=== PATIENT | male | born 1965 | race Caucasian/White ===

== ENCOUNTER 2020-03-30 16:29 | Emergency (ER) | payer BC ==
[~2020-03-30] VITALS: Ht 193 cm; Wt 120.5 kg
[2020-03-30 16:50] VITALS: BP 168/81; TEMP 98.7
[2020-03-30] MEDS ORDERED: INSULIN SYRING1 EA12 SQ (17:15)
[2020-03-30] MEDS ORDERED: BYSTOLIC10 MG PO (17:15)
[2020-03-30] MEDS ORDERED: AMOXICILLIN 8751 TAB PO (17:37)
[2020-03-30 17:51] VITALS: PULSE 83
== END 2020-03-30 17:51 | disposition home or self-care (01) ==
LOC: COL.ER 16:29
DX: E11.621 Type 2 diabetes mellitus with foot ulcer (principal); L03.031 Cellulitis of right toe; I10 Essential (primary) hypertension; Z23 Encounter for immunization; Z79.4 Long term (current) use of insulin

== ENCOUNTER 2020-04-03 14:12 | Emergency (ER) | payer BC ==
[~2020-04-03] VITALS: Ht 193 cm; Wt 120.5 kg
[~2020-04-03 14:12] MED LIST changes: -DOXYCYCLINE 10100 MG PO; -HUMULIN 70/3100 U/M1 SQ; -HYZAAR 25 MG-101 TAB PO; -INSHUMULINN SQ; -INSHUMULINR SQ; -PRIL40 PO
[2020-04-03 14:26] VITALS: TEMP 98.7
[2020-04-03] MEDS ORDERED: HUMULIN 70/3100 U/M1 SQ (16:15)
[2020-04-03] MEDS ORDERED: INSHUMULINR SQ (16:18)
[2020-04-03] MEDS ORDERED: INSHUMULINN SQ (16:19)
[2020-04-03] MEDS ORDERED: DOXYCYCLINE 10100 MG PO (17:22)
[2020-04-03 17:43] VITALS: BP 148/73; PULSE 81
[2020-04-04] MEDS ORDERED: PRIL40 PO (08:27)
[2020-04-04] MEDS ORDERED: HYZAAR 25 MG-101 TAB PO (08:28)
== END 2020-04-03 17:44 | disposition home or self-care (01) ==
LOC: COL.ER 14:12
DX: M86.9 Osteomyelitis, unspecified (principal); E11.9 Type 2 diabetes mellitus without complications; I10 Essential (primary) hypertension; Z79.4 Long term (current) use of insulin
CPT/HCPCS: J0696

== ENCOUNTER → 2020-04-03 | Outpatient (CLI) | payer BC ==
[~2020-04-03] MED LIST: AMOXICILLIN 8751 TAB PO; BYSTOLIC10 MG PO; DOXYCYCLINE 10100 MG PO; HUMULIN 70/3100 U/M1 SQ; HYZAAR 25 MG-101 TAB PO; INSHUMULINN SQ; INSHUMULINR SQ; INSULIN SYRING1 EA12 SQ; PRIL40 PO
== END ==
LOC: ZCOL.LAB 17:28
DX: E11.621 Type 2 diabetes mellitus with foot ulcer (principal)

== ENCOUNTER → 2020-04-06 | Outpatient (CLI) | payer BC ==
[~2020-04-06] MED LIST changes: +DOXYCYCLINE 10100 MG PO; +HUMULIN 70/3100 U/M1 SQ; +HYZAAR 25 MG-101 TAB PO; +INSHUMULINN SQ; +INSHUMULINR SQ; +PRIL40 PO
== END ==
LOC: EDBD 17:45 → ZCOL.LAB 17:45
DX: E11.621 Type 2 diabetes mellitus with foot ulcer (principal); L97.509 Non-pressure chronic ulcer of other part of unspecified foot with unspecified severity; I10 Essential (primary) hypertension; R60.0 Localized edema

== ENCOUNTER 2020-04-08 08:18 | Outpatient (RCR) | payer BC ==
[2020-04-04 08:28] VITALS: BP 163/77; PULSE 85; TEMP 98.5
[2020-04-05 09:15] VITALS: BP 168/80; PULSE 85; TEMP 98.7
[2020-04-06 09:04] VITALS: BP 170/777; PULSE 81; TEMP 98.2
[2020-04-07 10:32] VITALS: BP 169/83; PULSE 82; TEMP 98.5
[2020-04-07 11:00] LABS: BASO # 0.1 (0.0-0.2); BASO % 0.7 % (0.0-2.0); EOS # 0.2 (0.0-0.7); EOS % 2.9 % (0-4.0); GRAN # 4.9 (1.4-6.5); GRAN % 65.2 % (42.2-75.2); HEMATOCRIT 39.3 % (42.0-52.0); HEMOGLOBIN 13.5 g/dl (13.5-18.0); LYMPH # 1.6 (1.2-3.4); LYMPH % 21.7 % (20.0-51.0); MEAN CELL VOLUME 95 fl (80.0-100.0); MEAN CORPUSCULAR HEMOGLOBIN 33 pg (27.0-31.0); MEAN CORPUSCULAR HGB CONC 34 g/dl (33.0-37.0); MEAN PLATELET VOLUME 9.5 fl (7.4-10.4); MONO # 0.7 (0.1-0.6); MONO % 8.8 % (1.7-9.3); PLATELET COUNT 310 K/mm3 (130-400); RED BLOOD COUNT 4.12 M/mm3 (4.20-5.60); REDCELL DISTRIBUTION WIDTH-CV 11.7 % (11.5-14.5)
[2020-04-07 11:04] LABS: ALBUMIN 4.2 gm/dL (3.5-5.0); BILIRUBIN,TOTAL 0.7 mg/dL (0.0-1.0); C-REACTIVE PROTEIN 1.2 mg/dL (0.0-0.9); CALCIUM 9.6 mg/dL (8.4-10.2); CREATININE, serum 0.75 (0.66-1.25); POTASSIUM 4.3 mmol/L (3.4-5.0); TOTAL PROTEIN 7.6 gm/dL (6.4-8.2)
[2020-04-07 11:24] LABS: ERYTHROCYTE SEDIMENTATION RATE 24 mm/hr (0-30)
[~2020-04-08] VITALS: Ht 193 cm; Wt 121.4 kg
[2020-04-09 08:28] VITALS: BP 172/89; PULSE 84; TEMP 98.9
--- NOTE | 2020-04-10 08:54 | NUR ---
Call received from Pts .Per Kaylie,Pt is inpatient at [facility].
== END 2020-04-10 08:54 | disposition still patient (30) ==
LOC: EUO 04-10 08:54
PROVIDERS: Nurse Practitioner
DX: E11.621 Type 2 diabetes mellitus with foot ulcer (principal); E11.628 Type 2 diabetes mellitus with other skin complications; E11.69 Type 2 diabetes mellitus with other specified complication; M86.9 Osteomyelitis, unspecified; I10 Essential (primary) hypertension; L03.90 Cellulitis, unspecified; M86.60 Other chronic osteomyelitis, unspecified site; Z95.828 Presence of other vascular implants and grafts; L97.509 Non-pressure chronic ulcer of other part of unspecified foot with unspecified severity
CPT/HCPCS: C1751; J0696; J1335